=== PATIENT | male | born 1990 | race Caucasian/White ===

== ENCOUNTER 2017-01-15 08:42 | Emergency (ER) | payer BC ==
[2017-01-15 08:58] VITALS: BP 139/87
--- NOTE | 2017-01-15 09:13 | UC ---
Abdominal Pain Male HPI - HPI Summary HPI Summary: diffuse abdominal pain x 2 days + nausea, dry heave , mild diarrhea no fever, no chills - History of Current Complaint Chief Complaint: UCGI Stated Complaint: STOMACH NAUSEA Time Seen by Provider: 01/15/17 08:46 Hx Obtained From: Patient Onset/Duration: Gradual Onset, Lasting Days - 2, Still Present Timing: Constant Severity Initially: Mild Severity Currently: Mild Location: Diffuse Radiates: No Character: Cramping Aggravating Factor(s):: Nothing Alleviating Factor(s): Nothing Associated Signs And Symptoms: Positive: Nausea, Diarrhea. Negative: Diaphoresis, Fever, Cough, Chest Pain, Dizzy, Back Pain, Constipation, Blood in Stool, Urinary Symptoms, Decreased Appetite, Vomiting, Penile Discharge - Allergies/Home Medications Allergies/Adverse Reactions: Allergies Allergy/AdvReac Type Severity Reaction Status Date / Time No Known Allergies Allergy Verified 01/15/17 08:57 Home Medications: Home Medications Bismuth Subsalicylate [Pepto-Bismol Max Strength] 525 mg PO Q12H PRN 01/15/17 [ History Confirmed 01/15/17] PMH/Surg Hx/FS Hx/Imm Hx Previously Healthy: Yes - Surgical History Surgical History: Yes Surgery Procedure, Year, and Place: INGUINAL HERNIA CHILD - Family History Known Family History: Positive: Other - father with MRSA - Social History Alcohol Use: Weekly Alcohol Amount: 3-4 Substance Use Type: None Smoking Status (MU): Never Smoked Tobacco Review of Systems Constitutional: Negative Skin: Negative Eyes: Negative ENT: Negative Gastrointestinal: Abdominal Pain, Diarrhea, Nausea All Other Systems Reviewed And Are Negative: Yes Physical Exam Triage Information Reviewed: Yes Appearance: Well-Appearing, No Pain Distress, Well-Nourished Vital Signs: Initial Vital Signs Temp 98.8 F 01/15/17 08:48 Pulse 62 01/15/17 08:48 Resp 18 01/15/17 08:48 BP 139/87 01/15/17 08:48 Vital Signs Reviewed: Yes Eye Exam: Normal Eyes: Positive: Conjunctiva Clear ENT: Positive: Normal ENT inspection, Hearing grossly normal, Pharynx normal Neck: Positive: Supple, Nontender, No Lymphadenopathy Respiratory: Positive: Chest non-tender, Lungs clear, Normal breath sounds, No respiratory distress Cardiovascular: Positive: RRR, No Murmur, Pulses Normal Abdominal Exam: Normal Abdomen Description: Positive: Nontender, Soft Bowel Sounds: Positive: Present Neurological Exam: Normal Skin Exam: Normal Abd Pain Male Course/Dx - Differential Dx/Clinical Impression Provider Diagnoses: gastritis Discharge - Discharge Plan Condition: Stable Disposition: HOME Patient Education Materials: Gas and Bloating (ED), Abdominal Pain (ED) Referrals: Ray Doran DO [Primary Care Provider] - 5 Days
== END 2017-01-15 09:15 | disposition home or self-care (01) ==
LOC: UCCORT 08:42
DX: K29.70 Gastritis, unspecified, without bleeding (principal); R11.0 Nausea; R19.7 Diarrhea, unspecified
CPT/HCPCS: 99211; G0463

== ENCOUNTER 2019-03-13 08:43 | Emergency (ER) | payer BC ==
[2019-03-13 09:02] VITALS: BP 134/71
--- NOTE | 2019-03-13 09:10 | UC ---
General HPI - HPI Summary HPI Summary: pt is c/o sinus pressure with congestion since yesterday am. he is also c/o pressure in his ears and upper teeth. he had a scratchy throat at onset which has resolved. no fever. he is able to blow out a light yellow congestion. no hx sinus surgery or bloody-purulent drainage. - History of Current Complaint Chief Complaint: UCRespiratory Stated Complaint: CONGESTION,SINUS Time Seen by Provider: 03/13/19 09:02 Hx Obtained From: Patient Onset/Duration: Gradual Onset Timing: Constant Pain Intensity: 8 Associated Signs & Symptoms: Negative: Fever, Headache - Allergy/Home Medications Allergies/Adverse Reactions: Allergies Allergy/AdvReac Type Severity Reaction Status Date / Time No Known Allergies Allergy Verified 03/13/19 08:58 Home Medications: Home Medications NK [No Home Medications Reported] 03/13/19 [History Confirmed 03/13/19] PMH/Surg Hx/FS Hx/Imm Hx Previously Healthy: Yes - Surgical History Surgical History: Yes Surgery Procedure, Year, and Place: Dental Implants, Inguinal Herniorrhaphy as a Child - Family History Known Family History: Positive: Other - father with MRSA - Social History Lives: With Family Alcohol Use: None Alcohol Amount: 3-4 Substance Use Type: None Smoking Status (MU): Never Smoked Tobacco Review of Systems All Other Systems Reviewed And Are Negative: No Constitutional: Negative: Fever, Chills Eyes: Negative: Drainage, Eye Redness Respiratory: Negative: Shortness Of Breath, Cough Neurological: Negative: Headache Physical Exam Triage Information Reviewed: Yes Appearance: Well-Appearing Vital Signs: Initial Vital Signs Temp 99.5 F 03/13/19 08:57 Pulse 88 03/13/19 08:57 Resp 16 03/13/19 08:57 BP 134/71 03/13/19 08:57 Pulse Ox 98 03/13/19 08:57 Vital Signs Reviewed: Yes Eyes: Positive: Conjunctiva Clear ENT: Positive: Pharynx normal, Nasal congestion, TMs normal, Uvula midline. Negative: Nasal drainage, Trismus, Muffled voice, Hoarse voice, Sinus tenderness Neck: Positive: Supple, Nontender, No Lymphadenopathy Respiratory: Positive: No respiratory distress Neurological: Positive: Alert Psychological: Positive: Age Appropriate Behavior Skin Exam: Normal Course/Dx - Differential Dx - Multi-Symptom Differential Diagnoses: Other - antibiotic not indicated - Diagnoses Provider Diagnosis: URI (upper respiratory infection) Discharge ED - Sign-Out/Discharge Documenting (check all that apply): Patient Departure All imaging exams completed and their final reports reviewed: No Studies - Discharge Plan Condition: Stable Disposition: HOME Patient Education Materials: Upper Respiratory Infection (DC) Referrals: Chandler Ramirez DO [Doctor of Osteopathy] - 7 Days Additional Instructions: START A DECONGESTANT PER LABEL NEEDED FOR SINUS PRESSURE/CONGESTION - Billing Disposition and Condition Condition: STABLE Disposition: Home
== END 2019-03-13 09:18 | disposition home or self-care (01) ==
LOC: UCCORT 08:43
DX: J06.9 Acute upper respiratory infection, unspecified (principal)
CPT/HCPCS: 99211; G0463